=== PATIENT | female | born 1960 | race African-American/Black ===

== ENCOUNTER 2020-03-01 15:46 | Emergency (ER) | payer MEDICAID, OTHER ==
[~2020-03-01] VITALS: Ht 160 cm; Wt 63.0 kg
[2020-03-01] MEDS ORDERED: SODIUM CHLORIDE 0.9% 1,000 ML IV ONE (16:11)
[2020-03-01 16:31] LABS: Basophils # (auto) 0 10 ^3/uL (0-0.2); Basophils % (auto) 0.5 % (0.0-2.0); Eosinophils # (auto) 0 10 ^3/uL (0-0.8); Hematocrit 41.4 % (36.0-46.0); Lymphocytes # (auto) 1.1 10 ^3/uL (0.4-5.4); Lymphocytes % (auto) 19.5 % (10.0-50.0); Mean Corpuscular Hemoglobin 31.4 pg (28.0-32.0); Mean Corpuscular Hgb Conc. 33.9 g/dL (32.0-36.0); Mean Corpuscular Volume 92.6 fL (80.0-100.0); Monocytes # (auto) 0.3 10 ^3/uL (0-1.3); Monocytes % (auto) 4.4 % (0.0-12.0); Neutrophils # (auto) 4.4 10 ^3/uL (1.6-8.6); Neutrophils % (auto) 75.6 % (37.0-80.0); Platelet Count (auto) 383 10^3/uL (140-450); Red Blood Cells 4.47 10^6/uL (4.0-5.20); Red Cell Distribution Width 14.3 % (11.8-14.3); White Blood Cell 5.8 10^3/uL (4.4-10.8)
[2020-03-01 16:45] LABS: Calcium 9.2 mg/dL (8.5-10.1); Potassium 3.5 mmol/L (3.5-5.1)
[2020-03-01 16:49] LABS: Albumin 3.6 g/dL (3.4-5.0); BUN/Creatinine Ratio 10.7
[2020-03-01 16:52] LABS: Bilirubin, Total 0.8 mg/dL (0.2-1.0); Total Protein 7.9 g/dL (6.4-8.2)
[2020-03-01] MEDS ORDERED: cloNIDine HCL 0.1 MG TAB PO ONE (20:00)
[2020-03-01] MEDS ORDERED: MORPHINE SULFATE 4 MG/ML SYR/VIAL IV ONE (20:00)
[2020-03-01] MEDS ORDERED: ONDANSETRON HCL 4 MG/2 ML VIAL IV ONE (20:00)
[2020-03-01 22:42] LABS: Urine Bacteria NONE SEEN /hpf (None Seen); Urine Blood Negative /uL (Negative); Urine Mucus FEW (None Seen); Urine Specific Gravity 1.008 (1.001-1.035); Urine WBC <1 /hpf (0 - 5)
[2020-03-01 22:52] LABS: Amphetamine Screen, Urine NEGATIVE (NEGATIVE); Barbiturate Scree,Urine NEGATIVE (NEGATIVE); Benzodiazephine Screen, Urine NEGATIVE (NEGATIVE); Cannabinoid Screen, Urine NEGATIVE (NEGATIVE); Cocaine Screen, Urine NEGATIVE (NEGATIVE); Opiate Scree,Urine NEGATIVE (NEGATIVE); Phencyclidine Screen, Urine NEGATIVE (NEGATIVE)
[2020-03-01 22:53] LABS: Alcohol, Urine < 3.0 mg/dL (0-10)
[2020-03-02 04:41] VITALS: BP 111/60
== END 2020-03-02 05:25 | disposition home or self-care (01) ==
LOC: ER 15:46
DX: R10.84 Generalized abdominal pain (principal); E86.0 Dehydration; N36.0 Urethral fistula; E11.65 Type 2 diabetes mellitus with hyperglycemia; I10 Essential (primary) hypertension
CPT/HCPCS: 36415; 71045; 74176; 80053; 80307; 81001; 83690; 84484; 85025; 93005; 96361; 96374; 96375; 99285; J2270; J2405

== ENCOUNTER 2020-05-20 14:30 | Emergency (ER) | payer MEDICAID ==
[~2020-05-20] VITALS: Ht 160 cm; Wt 59.0 kg
[2020-05-20] MEDS ORDERED: SODIUM CHLORIDE 0.9% 1,000 ML IV ONE ×2 (15:17)
[2020-05-20 15:26] LABS: Basophils # (auto) 0 10 ^3/uL (0-0.2); Basophils % (auto) 0.4 % (0.0-2.0); Eosinophils # (auto) 0 10 ^3/uL (0-0.8); Eosinophils % (auto) 0.4 % (0.0-7.0); Hematocrit 39.1 % (36.0-46.0); Hemoglobin 12.8 g/dL (12.2-16.2); Lymphocytes # (auto) 1.7 10 ^3/uL (0.4-5.4); Lymphocytes % (auto) 29.4 % (10.0-50.0); Mean Corpuscular Hemoglobin 30.8 pg (28.0-32.0); Mean Corpuscular Hgb Conc. 32.7 g/dL (32.0-36.0); Mean Corpuscular Volume 94.1 fL (80.0-100.0); Monocytes # (auto) 0.4 10 ^3/uL (0-1.3); Monocytes % (auto) 7.1 % (0.0-12.0); Neutrophils # (auto) 3.6 10 ^3/uL (1.6-8.6); Neutrophils % (auto) 62.7 % (37.0-80.0); Nucleated Red Blood Cells % 0.2 %; Platelet Count (auto) 311 10^3/uL (140-450); Red Blood Cells 4.16 10^6/uL (4.0-5.20); Red Cell Distribution Width 14.9 % (11.8-14.3); White Blood Cell 5.7 10^3/uL (4.4-10.8)
[2020-05-20 16:01] LABS: Albumin 3.5 g/dL (3.4-5.0); Anion Gap 5 (5-15); Blood Urea Nitrogen 13 mg/dL (7-18); Calcium 8.8 mg/dL (8.5-10.1); Carbon Dioxide 26 mmol/L (21-32); Chloride 109 mmol/L (98-107); Glucose 102 mg/dL (74-106); Magnesium 2.6 mg/dL (1.6-2.6); Potassium 3.5 mmol/L (3.5-5.1); Sodium 140 mmol/L (136-145)
[2020-05-20 16:07] LABS: Alanine Aminotransferase 14 U/L (13-56); Alkaline Phosphatase 76 U/L (45-117); Aspartate Aminotransferase 13 U/L (15-37); BUN/Creatinine Ratio 18.3; Bilirubin, Total 0.8 mg/dL (0.2-1.0); GFR African American 108 mL/min; GFR Non-African American 90 mL/min; Total Protein 7.3 g/dL (6.4-8.2)
[2020-05-20] MEDS ORDERED: LABETALOL HCL 5 MG/ML 4ML SYRINGE IV ONE (16:45)
[2020-05-20] MEDS ORDERED: KETOROLAC TROMETH 30 MG/ML 1ML VIAL IV ONE (16:45)
[2020-05-20] MEDS ORDERED: MORPHINE SULFATE 4 MG/ML SYR/VIAL IV ONE (18:15)
[2020-05-20] MEDS ORDERED: ONDANSETRON HCL 4 MG/2 ML VIAL IV ONE (18:15)
[2020-05-20 19:33] VITALS: BP 137/66
== END 2020-05-20 19:57 | disposition short-term general hospital (02) ==
LOC: ER 14:30
DX: E86.0 Dehydration (principal); R10.84 Generalized abdominal pain; E11.9 Type 2 diabetes mellitus without complications; I10 Essential (primary) hypertension
CPT/HCPCS: 36415; 71045; 74176; 80053; 83690; 83735; 84484; 85025; 93005; 96361; 96374; 96375; 99285; J1885; J2270; J2405; J3490; J7030; 82962

== ENCOUNTER 2020-06-26 13:25 | Emergency (ER) | payer MEDICAID ==
[~2020-06-26] VITALS: Ht 167.6 cm; Wt 72.6 kg
[2020-06-26 14:47] LABS: Urine Bacteria NONE SEEN /hpf (None Seen); Urine Blood Negative /uL (Negative); Urine Mucus FEW (None Seen); Urine Specific Gravity 1.015 (1.001-1.035); Urine WBC 1 /hpf (0 - 5)
[2020-06-26 14:53] LABS: Basophils # (auto) 0 10 ^3/uL (0-0.2); Basophils % (auto) 0.5 % (0.0-2.0); Eosinophils # (auto) 0 10 ^3/uL (0-0.8); Eosinophils % (auto) 0.1 % (0.0-7.0); Hematocrit 42.4 % (36.0-46.0); Hemoglobin 14.3 g/dL (12.2-16.2); Lymphocytes # (auto) 0.8 10 ^3/uL (0.4-5.4); Lymphocytes % (auto) 20.2 % (10.0-50.0); Mean Corpuscular Hemoglobin 31.9 pg (28.0-32.0); Mean Corpuscular Hgb Conc. 33.7 g/dL (32.0-36.0); Mean Corpuscular Volume 94.7 fL (80.0-100.0); Monocytes # (auto) 0.1 10 ^3/uL (0-1.3); Monocytes % (auto) 3.3 % (0.0-12.0); Neutrophils # (auto) 3.2 10 ^3/uL (1.6-8.6); Neutrophils % (auto) 75.9 % (37.0-80.0); Nucleated Red Blood Cells % 0.1 %; Platelet Count (auto) 347 10^3/uL (140-450); Red Blood Cells 4.48 10^6/uL (4.0-5.20); Red Cell Distribution Width 14.7 % (11.8-14.3); White Blood Cell 4.2 10^3/uL (4.4-10.8)
[2020-06-26 15:00] LABS: Amphetamine Screen, Urine NEGATIVE (NEGATIVE); Barbiturate Scree,Urine NEGATIVE (NEGATIVE); Benzodiazephine Screen, Urine NEGATIVE (NEGATIVE); Cannabinoid Screen, Urine NEGATIVE (NEGATIVE); Cocaine Screen, Urine NEGATIVE (NEGATIVE); Opiate Scree,Urine NEGATIVE (NEGATIVE); Phencyclidine Screen, Urine NEGATIVE (NEGATIVE)
[2020-06-26 15:13] LABS: Albumin 3.9 g/dL (3.4-5.0); Anion Gap 7 (5-15); Blood Urea Nitrogen 10 mg/dL (7-18); Calcium 9.4 mg/dL (8.5-10.1); Carbon Dioxide 28 mmol/L (21-32); Chloride 107 mmol/L (98-107); Glucose 146 mg/dL (74-106); Magnesium 2.7 mg/dL (1.6-2.6); Potassium 3.5 mmol/L (3.5-5.1); Sodium 142 mmol/L (136-145)
[2020-06-26 15:24] LABS: Alanine Aminotransferase 15 U/L (13-56); Alkaline Phosphatase 73 U/L (45-117); Aspartate Aminotransferase 17 U/L (15-37); BUN/Creatinine Ratio 11.4; Bilirubin, Total 0.7 mg/dL (0.2-1.0); GFR African American 85 mL/min; GFR Non-African American 70 mL/min; Total Protein 7.7 g/dL (6.4-8.2)
[2020-06-26] MEDS ORDERED: LORazepam 0.5 MG TAB PO ONE (16:00)
[2020-06-26] MEDS ORDERED: SODIUM CHLORIDE 0.9% 1,000 ML IV ONE (16:00)
[2020-06-26] MEDS ORDERED: ASPirin 81 mg TAB PO ONE (16:00)
[2020-06-26] MEDS ORDERED: ONDANSETRON HCL 4 MG/2 ML VIAL IV ONE (16:00)
[2020-06-26] MEDS ORDERED: PANTOPRAZOLE 40 MG/10 ML VIAL INJ IV ONE (16:00)
[2020-06-26 17:03] VITALS: BP 141/72
== END 2020-06-26 16:57 | disposition left against medical advice (07) ==
LOC: EDBD 13:25 → ER 13:25
DX: K29.70 Gastritis, unspecified, without bleeding (principal); K31.84 Gastroparesis; E86.0 Dehydration; K59.00 Constipation, unspecified; E11.9 Type 2 diabetes mellitus without complications; I10 Essential (primary) hypertension; R51.9 Headache, unspecified; Z90.710 Acquired absence of both cervix and uterus
CPT/HCPCS: 36415; 70450; 71045; 74176; 80053; 80307; 81001; 83735; 84484; 85025; 93005; 96374; 96375; 99285; C9113; J2405; J7030

== ENCOUNTER 2020-12-13 15:50 | Emergency (ER) | payer MEDICAID ==
[~2020-12-13] VITALS: Ht 165.1 cm; Wt 72.6 kg
[2020-12-13 16:50] LABS: Basophils # (auto) 0 10 ^3/uL (0-0.2); Basophils % (auto) 0.3 % (0.0-2.0); Eosinophils # (auto) 0 10 ^3/uL (0-0.8); Hemoglobin 13.5 g/dL (12.2-16.2); Lymphocytes # (auto) 1.3 10 ^3/uL (0.4-5.4); Mean Corpuscular Hemoglobin 32.2 pg (28.0-32.0); Mean Corpuscular Hgb Conc. 33.8 g/dL (32.0-36.0); Mean Corpuscular Volume 95.4 fL (80.0-100.0); Monocytes # (auto) 0.4 10 ^3/uL (0-1.3); Neutrophils # (auto) 4.7 10 ^3/uL (1.6-8.6); Neutrophils % (auto) 73.7 % (37.0-80.0); Nucleated Red Blood Cells % 0.1 %; Platelet Count (auto) 306 10^3/uL (140-450); Red Cell Distribution Width 14.7 % (11.8-14.3); White Blood Cell 6.4 10^3/uL (4.4-10.8)
[2020-12-13 17:08] LABS: Chloride 109 mmol/L (98-107); Potassium 3.7 mmol/L (3.5-5.1); Sodium 145 mmol/L (136-145)
[2020-12-13 17:13] LABS: Alanine Aminotransferase 28 U/L (13-56); Albumin 3.9 g/dL (3.4-5.0); Anion Gap 8 (5-15); Aspartate Aminotransferase 18 U/L (15-37); BUN/Creatinine Ratio 18.8; Blood Urea Nitrogen 16 mg/dL (7-18); Calcium 9.2 mg/dL (8.5-10.1); Carbon Dioxide 28 mmol/L (21-32); GFR African American 88 mL/min; GFR Non-African American 73 mL/min; Glucose 129 mg/dL (74-106)
[2020-12-13 17:18] LABS: Alkaline Phosphatase 71 U/L (45-117); Bilirubin, Total 0.5 mg/dL (0.2-1.0); Total Protein 7.5 g/dL (6.4-8.2)
[2020-12-13] MEDS ORDERED: HYDROcodone-ACET 10/325MG TAB PO ONE (17:30)
[2020-12-13] MEDS ORDERED: ONDANSETRON ODT 4 MG TAB PO ONE (17:30)
[2020-12-13 18:10] VITALS: BP 145/68
== END 2020-12-13 18:10 | disposition home or self-care (01) ==
LOC: EDUNIT# 15:50 → EDBD 15:50 → ER 15:50
DX: R10.84 Generalized abdominal pain (principal); E11.9 Type 2 diabetes mellitus without complications; I10 Essential (primary) hypertension; I25.2 Old myocardial infarction; Z90.710 Acquired absence of both cervix and uterus
CPT/HCPCS: 36415; 74176; 80053; 84484; 85025; 93005; 99285; Q0162

== ENCOUNTER 2023-08-12 17:47 | Observation (INO) | payer BC, OTHER ==
[~2023-08-12] VITALS: Ht 160 cm; Wt 77.5 kg
[2023-08-12] MEDS ORDERED: SODIUM CHLORIDE 0.9% 1,000 ML IV ONE (19:00)
[2023-08-12 19:26] LABS: Basophils # (auto) 0 10 ^3/uL (0-0.2); Basophils % (auto) 0.4 % (0.0-2.0); Eosinophils # (auto) 0 10 ^3/uL (0-0.8); Eosinophils % (auto) 0.1 % (0.0-7.0); Hematocrit 45.1 % (36.0-46.0); Hemoglobin 14.9 g/dL (12.2-16.2); Lymphocytes # (auto) 1.7 10 ^3/uL (0.4-5.4); Lymphocytes % (auto) 18.4 % (10.0-50.0); Mean Corpuscular Hemoglobin 30.2 pg (28.0-32.0); Mean Corpuscular Hgb Conc. 33.1 g/dL (32.0-36.0); Mean Corpuscular Volume 91.3 fL (80.0-100.0); Monocytes % (auto) 10.6 % (0.0-12.0); Neutrophils # (auto) 6.7 10 ^3/uL (1.6-8.6); Neutrophils % (auto) 70.5 % (37.0-80.0); Red Blood Cells 4.94 10^6/uL (4.0-5.20); Red Cell Distribution Width 13.8 % (11.8-14.3); White Blood Cell 9.4 10^3/uL (4.4-10.8)
[2023-08-12] MEDS ORDERED: SODIUM CHLORIDE 0.9% 2,350 ML IV ONE (19:30)
[2023-08-12] MEDS ORDERED: AZITHROMYCIN 500MG/ 250ML 250 ML IV ONE (19:30)
[2023-08-12] MEDS ORDERED: ACETAMINOPHEN 325 MG TAB PO PRN (19:30)
[2023-08-12] MEDS ORDERED: guaiFENesin-DM 100/10mg/5ml SYR PO ONE (19:30)
[2023-08-12] MEDS ORDERED: HYDROmorphone HCL 2 MG/ML VL/or syr IV ONE (19:30)
[2023-08-12] MEDS ORDERED: ONDANSETRON HCL 4 MG/2 ML VIAL IV ONE (19:30)
[2023-08-12] MEDS ORDERED: InsuLIN REG 1unit/0.01ml Soln (100units/ml) IV ONE (19:30)
[2023-08-12] MEDS ORDERED: IBUPROFEN 600 MG TAB PO ONE (19:45)
[2023-08-12 20:11] LABS: INR 1.04 (0.9-1.15); Partial Thromboplastin Time 28.9 SEC (24.5-34.5); Prothrombin Time 10.9 sec (9.3-11.8)
[2023-08-12 20:42] LABS: Alanine Aminotransferase 22 U/L (7-40); Albumin 3.8 g/dL (3.2-4.8); Alkaline Phosphatase 101 U/L (46-116); Anion Gap 7 (5-15); Aspartate Aminotransferase 29 U/L (13-40); BUN/Creatinine Ratio 11.4 (10.0-20.0); Bilirubin, Total 0.3 mg/dL (0.2-1.0); Blood Urea Nitrogen 14 mg/dL (9-23); Calcium 8.6 mg/dL (8.7-10.4); Carbon Dioxide 25 mmol/L (20-30); Chloride 99 mmol/L (98-107); Potassium 4.4 mmol/L (3.5-5.1); Sodium 131 mmol/L (136-145); Total Protein 7.2 g/dL (5.7-8.2)
[2023-08-12 20:49] LABS: Glucose 431 mg/dL (74-106)
[2023-08-12 22:43] LABS: COVID19 ANTIGEN SOFIA FIA NEGATIVE (NEGATIVE)
[2023-08-12 23:18] VITALS: PULSE 88; RESP 16; O2SAT 96
[2023-08-13] VITALS (15 sets, daily range): BP systolic 115–138; BP diastolic 64–72; PULSE 63–82; RESP 14–20; TEMP 98–98.2; O2SAT 95–100
[2023-08-13 01:12] LABS: Rapid Influenza A Positive (Negative); Rapid Influenza B Negative (Negative)
[2023-08-13] MEDS ORDERED: DEXTROSE (50%) 50ML SYRG IV PRN (02:00)
[2023-08-13] MEDS ORDERED: DexAMETHasone SOD PHOS 10MG/1ML VIAL INJ IV ONE (02:00)
[2023-08-13] MEDS ORDERED: NITROGLYCERIN 0.4 MG SL TAB SL PRN (02:00)
[2023-08-13] MEDS ORDERED: MORPHINE SULFATE INJ 2 MG/ml SYRG IV PRN (02:00)
[2023-08-13] MEDS ORDERED: ONDANSETRON HCL 4 MG/2 ML VIAL IV PRN (02:00)
[2023-08-13] MEDS ORDERED: SODIUM CHLORIDE 0.9% 1,000 ML IV ONE (02:00)
[2023-08-13 04:21] LABS: Basophils # (auto) 0 10 ^3/uL (0-0.2); Basophils % (auto) 0.2 % (0.0-2.0); Eosinophils # (auto) 0 10 ^3/uL (0-0.8); Eosinophils % (auto) 0.1 % (0.0-7.0); Hematocrit 39.1 % (36.0-46.0); Lymphocytes # (auto) 1.4 10 ^3/uL (0.4-5.4); Mean Corpuscular Hemoglobin 30.3 pg (28.0-32.0); Mean Corpuscular Hgb Conc. 33.2 g/dL (32.0-36.0); Mean Corpuscular Volume 91.1 fL (80.0-100.0); Monocytes # (auto) 0.8 10 ^3/uL (0-1.3); Monocytes % (auto) 12.8 % (0.0-12.0); Neutrophils # (auto) 4.2 10 ^3/uL (1.6-8.6); Neutrophils % (auto) 65.9 % (37.0-80.0); Nucleated Red Blood Cells % 0.1 %; Red Blood Cells 4.29 10^6/uL (4.0-5.20); Red Cell Distribution Width 13.4 % (11.8-14.3); White Blood Cell 6.4 10^3/uL (4.4-10.8)
[2023-08-13 04:34] LABS: Alanine Aminotransferase 21 U/L (7-40); Albumin 3.4 g/dL (3.2-4.8); Alkaline Phosphatase 87 U/L (46-116); Anion Gap 8 (5-15); Aspartate Aminotransferase 25 U/L (13-40); BUN/Creatinine Ratio 13.3 (10.0-20.0); Bilirubin, Total 0.3 mg/dL (0.2-1.0); Blood Urea Nitrogen 14 mg/dL (9-23); Calcium 8.1 mg/dL (8.7-10.4); Carbon Dioxide 24 mmol/L (20-30); Chloride 100 mmol/L (98-107); Potassium 4.2 mmol/L (3.5-5.1); Sodium 132 mmol/L (136-145); Total Protein 6.4 g/dL (5.7-8.2)
[2023-08-13 04:39] LABS: Glucose 415 mg/dL (74-106)
[2023-08-13] MEDS ORDERED: ALBUTEROL MEDNEB 2.5 mg/3ml NEB ONE ×4 (06:24→23:41)
[2023-08-13] MEDS: ACCU-CHEK COMFORT CURVE STRIP VI SCH ×4 (06:40→22:00)
[2023-08-13 06:49] LABS: Urine Bacteria FEW /hpf (None Seen); Urine Blood TRACE /uL (Negative); Urine Clarity Clear (Clear); Urine Protein, UAD TRACE (Negative); Urine Urobilinogen Normal (Negative); Urine WBC 2 /hpf (0 - 5)
[2023-08-13] MEDS: IPRATROPIUM BROM 0.5 MG/2.5ML INH SOL NEB SCH ×3 (06:53→19:06)
[2023-08-13] MEDS: InsuLIN REG 1unit/0.01ml Soln (100units/ml) SC SCH ×3 (06:53→18:39)
[2023-08-13] MEDS: ALBUTEROL SULF 2.5 MG/0.5ML(0.5%) NEB SOLN NEB SCH ×3 (06:53→19:06)
[2023-08-13 06:54] LABS: Urine Color Straw (Yellow)
[2023-08-13] MEDS ORDERED: levoFLOXacin 500MG 100 ML IV SCH ×2 (10:00)
[2023-08-13] MEDS ORDERED: METF-370 PO ×2 (10:20→15:28)
[2023-08-13] MEDS ORDERED: LISI10TA34 PO (10:20)
[2023-08-13] MEDS ORDERED: ATOR20TA50 PO (10:22)
[2023-08-13] MEDS ORDERED: OSEL75CA5 PO (15:28)
[2023-08-13] MEDS ORDERED: AZIT-81 PO (15:31)
[2023-08-13] MEDS ORDERED: INSU1INJ19 SC (15:34)
[2023-08-13] MEDS ORDERED: INSU32MI9 XX (15:36)
[2023-08-13] MEDS ORDERED: BLOO1KIT60 XX (15:37)
[2023-08-13] MEDS ORDERED: INSU100I26 SC (15:42)
[2023-08-13] MEDS ORDERED: VANCOMYCIN 1GM/250ML 250 ML IV ONE (18:45)
[2023-08-13] MEDS ORDERED: VANCOMYCIN PER PHARMACY 0 MG IV SCH (19:30)
[2023-08-13] MEDS ORDERED: InsuLIN REG 1unit/0.01ml Soln (100units/ml) SC SCH (22:00)
[2023-08-13] MEDS: OSELTAMIVIR 30 MG CAP PO SCH (22:00)
[2023-08-14] VITALS (10 sets, daily range): BP systolic 111–140; BP diastolic 54–79; PULSE 65–107; RESP 16–22; TEMP 97.6–97.9; O2SAT 96–100
[2023-08-14] MEDS: IPRATROPIUM BROM 0.5 MG/2.5ML INH SOL NEB SCH ×3 (00:23→13:13)
[2023-08-14] MEDS: ALBUTEROL SULF 2.5 MG/0.5ML(0.5%) NEB SOLN NEB SCH ×3 (00:24→13:13)
[2023-08-14] MEDS: InsuLIN REG 1unit/0.01ml Soln (100units/ml) SC SCH ×3 (05:53→17:58)
[2023-08-14] MEDS: ACCU-CHEK COMFORT CURVE STRIP VI SCH ×3 (06:14→17:58)
[2023-08-14] MEDS ORDERED: ALBUTEROL MEDNEB 2.5 mg/3ml NEB ONE ×3 (06:17→17:51)
[2023-08-14] MEDS: OSELTAMIVIR 30 MG CAP PO SCH (09:41)
[2023-08-14] MEDS ORDERED: levoFLOXacin 250MG 50 ML IV SCH (10:00)
[2023-08-14] MEDS ORDERED: VANCOMYCIN 500 MG in D5W 5% 100 ML IV SCH (11:30)
[2023-08-14] MEDS ORDERED: AZIT-81 PO (17:46)
[2023-08-14] MEDS ORDERED: BLOO1KIT60 XX (17:48)
[2023-08-14] MEDS ORDERED: INSU32MI9 XX (17:48)
[2023-08-14] MEDS ORDERED: INSU1INJ19 SC (17:52)
[2023-08-14] MEDS ORDERED: INSU100I27 SC (17:52)
[2023-08-14] MEDS ORDERED: OSEL75CA5 PO (17:53)
== END 2023-08-14 18:50 | disposition home or self-care (01) ==
LOC: ER 17:47 → OVERFLOW 08-13 02:04 → WEST WING 08-13 09:17
PROVIDERS: ADMIT Internal Medicine; ATTEND Student in an Organized Health Care Education/Training Program
DX: Z20.822 Contact with and (suspected) exposure to COVID-19 (principal); J10.01 Influenza due to other identified influenza virus with the same other identified influenza virus pneumonia; J10.1 Influenza due to other identified influenza virus with other respiratory manifestations; J84.9 Interstitial pulmonary disease, unspecified; J96.01 Acute respiratory failure with hypoxia; N17.9 Acute kidney failure, unspecified; K31.84 Gastroparesis; E86.0 Dehydration; E87.1 Hypo-osmolality and hyponatremia; E11.65 Type 2 diabetes mellitus with hyperglycemia; I27.20 Pulmonary hypertension, unspecified; E66.01 Morbid (severe) obesity due to excess calories; I12.9 Hypertensive chronic kidney disease with stage 1 through stage 4 chronic kidney disease, or unspecified chronic kidney disease; E11.22 Type 2 diabetes mellitus with diabetic chronic kidney disease; N18.9 Chronic kidney disease, unspecified; K21.9 Gastro-esophageal reflux disease without esophagitis; E11.43 Type 2 diabetes mellitus with diabetic autonomic (poly)neuropathy; E78.5 Hyperlipidemia, unspecified; I25.10 Atherosclerotic heart disease of native coronary artery without angina pectoris; F41.9 Anxiety disorder, unspecified; I25.2 Old myocardial infarction; J98.11 Atelectasis; Z79.4 Long term (current) use of insulin; Z79.84 Long term (current) use of oral hypoglycemic drugs; Z90.710 Acquired absence of both cervix and uterus; Z91.148 Patient's other noncompliance with medication regimen for other reason; Z79.899 Other long term (current) drug therapy
CPT/HCPCS: 36415; 71045; 71275; 80053; 81001; 82010; 82553; 82962; 83036; 83605; 83735; 83930; 84484; 85025; 85610; 85730; 86850; 86900; 86901; 87040; 87077; 87086; 87186; 87426; 87804; 93005; 94640; 96361; 96365; 96366; 96367; 96372; 96375; 99285; G0378; J0456; J1100; J1815; J1956; J2405; J3370; J7060; J7644; G9035